=== PATIENT | male | born 1950 | race Caucasian/White ===

== ENCOUNTER 2019-05-22 12:37 | Inpatient (IN) ==
[2019-05-22] MEDS ORDERED: Ibuprofen 600 MG TABLET PO PRN (13:50)
[2019-05-22] MEDS: Aspirin Enteric Coated 325 MG Tablet PO SCH (22:05)
[2019-05-23 07:33] LABS: Basophils # 0.1 K/mcL (0.0-0.2); Basophils % 0.7 %; Eosinophils # 0.4 K/mcL (0.0-0.6); Eosinophils % 5.5 %; Hematocrit 34.4 % (37.5-50.1); Hemoglobin 11.1 g/dL (12.9-16.9); Immature Granulocytes % 0.4 % (0-4); Lymphocytes # 1.5 K/mcL (0.6-4.6); Lymphocytes % 18.9 %; Mean Corpuscular HGB Conc 32.3 g/dL (31.6-35.5); Mean Corpuscular Hemoglobin 28.9 pg (28.0-33.3); Mean Corpuscular Volume 89.6 fL (83.0-100.0); Mean Platelet Volume 9.8 fL (9.4-12.4); Monocytes % 12.6 %; Neutrophils # 4.8 K/mcL (1.6-8.9); Platelet Count 236 K/mcL (140-400); Red Blood Count 3.84 M/mcL (4.19-5.50); Segmented Neutrophils % 61.9 %; White Blood Count 7.7 K/mcL (4.3-11.1)
[2019-05-23 07:44] LABS: Activated Partial Thrombo Time 33.8 Seconds (26.0-36.0); INR 1.2; Prothrombin Time 13.5 Seconds (9.4-12.1)
[2019-05-23 07:52] LABS: BUN/Creatinine Ratio 32 (6-26); Blood Urea Nitrogen 27 mg/dL (8-23); Calcium 7.9 mg/dL (8.6-10.3); Carbon Dioxide 25 mEq/L (23-29); Chloride 108 mEq/L (98-107); Glucose 99 mg/dL (70-105); Osmolality,Calculated 295 (280-300); Sodium 140 mEq/L (136-145); eGFR For African Americans > 60 (> 60); eGFR For Non-African Americans > 60 (> 60)
[2019-05-23] MEDS: Aspirin Enteric Coated 325 MG Tablet PO SCH ×2 (09:10→21:14)
[2019-05-23] MEDS: Lisinopril 20 MG TABLET PO SCH (09:10)
[2019-05-23] MEDS: *HR* OxyCODONE Immed Rel 5 MG TABLET PO PRN (09:15)
--- NOTE | 2019-05-23 12:22 | Internal Med History&Physical ---
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 Aspirin was ordered at [facility] discharge for DVT prophylaxis. CBC will be monitored. (2) Anemia Current visit: Yes Status: Acute Postoperative. CBC will be monitored. Anemia testing will be checked in a.m. Qualifiers: Anemia type: unspecified type Qualified Code(s): D64.9 - Anemia, unspecified (3) Hypothyroidism Current visit: Yes Status: Acute Check TSH in a.m. 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 Qualifiers: Hypertension type: unspecified Qualified Code(s): I10 - Essential (primary) hypertension Internal Medicine - H&P: HPI Chief complaint: Bilateral revision knee replacements Admitted From: Hospital to Hospital Transfer Plans for Post Hospital Care: Home History of present illness: Mr. Toth is a 68 year old male who underwent bilateral revision robotic- assisted total knee replacements 05/19/2019. He had previous right TKR 2014 and previous left TKR 2006. His postop course was unremarkable and he was admitted to [facility] swing bed for rehabilitation therapy prior to returning to independent living. [facility] skeletal history is significant otherwise for right reverse total shoulder replacement 2010. 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 He denies gout or other bone joint or muscle disorders. Past Med Surg Social Fam HX - Past Medical History Medical history: arthritis, CVA Additional medical history: sleep apnea, stroke, lymes disease, CVA 2009 Psychiatric history: no psych history - Past Surgical History Surgical History: other Additional surgical history: spine surgery 1991, colonscopy 2018 with polyp removal, Bilateral knees 05/2019 - Social History Smoking Status: Never smoker Smokeless Tobacco Status: No Alcohol use: occasionally Drug use: none Internal Medicine - H&P: Meds Acetaminophen [Pain Relief] 500 mg PO Q6H 7 Days #28 tablet 05/19/19 [Rx] Aspirin Enteric Coated [Aspirin EC] 325 mg PO BID 10 Days #20 tablet 05/19/19 [Rx] Docusate [Colace] 100 mg PO BID 5 Days #10 capsule 05/19/19 [Rx] Ibuprofen [Motrin] 600 mg PO Q6HR PRN 7 Days #28 tab 05/19/19 [Rx] Levothyroxine Sodium [Euthyrox] 200 mcg PO DAILY 05/19/19 [History] Lisinopril [Zestril] 20 mg PO DAILY 05/19/19 [History] Omeprazole [PriLOSEC] 40 mg PO DAILY 05/19/19 [History] OxyCODONE Immed Rel [Roxicodone 5 MG] 5 mg PO Q6HR PRN 5 Days #20 tablet 05/19/19 [Rx] Tamsulosin [Flomax] 0.4 mg PO DAILY 05/19/19 [History] Allergy/AdvReac Type Severity Reaction Status Date / Time No Known Allergies Allergy Verified 05/19/19 06:59 All Systems PM: A 10-system review of systems was performed and is negative for pertinent findi ngs except as documented above in the HPI. Review of systems: Gen.: He states his weight has been stable for several months Cardiovascular: He has history of hypertension but denies [place] heart failure angina DVT or pulmonary embolus Respiratory: He is a lifelong nonsmoker. He denies chronic lung disease. GI: He has GERD. He denies disorders of his liver gallbladder or exocrine pancreas. He reports colonoscopy earlier this year with 2 polyps removed. : He has BPH. He denies other kidney bladder prostate disorders. Neurologic: He claims a stroke 2010 left him with slight inferior visual field defects bilaterally. He denies other large distribution strokes or seizures. 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 He is on replacement levothyroxine. He denies diabetes or hyperlipidemia Hematology/oncology: He was unaware he had anemia postoperatively. He denies internal malignancies or other blood disorders. Psychiatric: He denies anxiety depression or other mental health issues. [place] skeletal: He denies arthritis gout or other bone joint or muscle disorders. - Constitutional Vitals: Temp Pulse Resp BP Pulse Ox 98.5 F 93 18 125/73 90 05/23/19 06:26 05/23/19 06:26 05/23/19 06:26 05/23/19 06:26 05/23/19 06:26 Exam: Gen.: He is a well-developed well-nourished male sitting in a chair at bedside who appears in no acute distress HEENT: Head is atraumatic and normocephalic. Eyes: EOMI. There is no scleral icterus. Mouth: Mucosa is moist. Neck: Supple and nontender. There is no thyromegaly or adenopathy noted. Heart: Regular without murmurs or gallops. There is an occasional ectopic beat heard which is asymptomatic. Lungs: No wheezes or crackles are heard. Abdomen: Soft and nontender. No masses or guarding are noted. Exam is limited because he is in the seated position. Extremities: There is no cyanosis edema or clubbing noted. Dorsalis pedis and posterior tibial pulses are trace palpable bilaterally. He has surgical dressings in place over knee incisions bilaterally which I did not remove. Neurologic: Mental status: He is talkative and a good historian. Cranial nerves: Smile is symmetric. Forehead wrinkles bilaterally. Tongue protrudes midline. EOMI. Motor: There is no pronator drift. Cerebellar: Finger to nose is intact bilaterally. Skin: Warm and dry Internal Med - H&P Results - Labs CBC & Chem 7: 05/23/19 07:15 05/23/19 07:15 Labs: Short CBC 05/23/19 Range/Units 07:15 WBC 7.7 (4.3-11.1) K/mcL Hgb 11.1 L (12.9-16.9) g/dL Hct 34.4 L (37.5-50.1) % Plt Count 236 (140-400) K/mcL Neutrophils # 4.8 (1.6-8.9) K/mcL BMP 05/23/19 07:15 Sodium 140 Potassium 4.0 Chloride 108 H Carbon Dioxide 25 BUN 27 H Creatinine 0.84 Glucose 99 Calcium 7.9 L
[2019-05-23] MEDS ORDERED: Aspirin Enteric Coated 325 MG Tablet PO SCH (13:49)
[2019-05-24 06:15] LABS: Alanine Aminotransferase 39 Units/L (7-52); Albumin 2.9 g/dL (3.5-5.7); Alkaline Phosphatase 69 Units/L (34-104); Aspartate Amino Transferase 53 Units/L (13-39); BUN/Creatinine Ratio 27 (6-26); Bilirubin,Total 0.7 mg/dL (0.3-1.0); Blood Urea Nitrogen 22 mg/dL (8-23); Calcium 8.2 mg/dL (8.6-10.3); Carbon Dioxide 25 mEq/L (23-29); Chloride 109 mEq/L (98-107); Globulin 2.9 g/dL (2.4-3.5); Glucose 97 mg/dL (70-105); Osmolality,Calculated 299 (280-300); Potassium 4.6 mEq/L (3.5-5.1); Sodium 143 mEq/L (136-145); Total Protein 5.8 g/dL (6.4-8.9); eGFR For African Americans > 60 (> 60); eGFR For Non-African Americans > 60 (> 60)
[2019-05-24 06:30] LABS: Thyroid Stimulating Hormone 10.094 mcIU/mL (0.340-5.600)
[2019-05-24 07:12] LABS: Basophils # 0.1 K/mcL (0.0-0.2); Basophils % 0.8 %; Eosinophils # 0.5 K/mcL (0.0-0.6); Eosinophils % 7.2 %; Hemoglobin 11.1 g/dL (12.9-16.9); Immature Granulocytes % 0.5 % (0-4); Lymphocytes # 1.3 K/mcL (0.6-4.6); Lymphocytes % 19.7 %; Mean Corpuscular HGB Conc 32.6 g/dL (31.6-35.5); Mean Corpuscular Hemoglobin 29.3 pg (28.0-33.3); Mean Corpuscular Volume 89.7 fL (83.0-100.0); Mean Platelet Volume 9.7 fL (9.4-12.4); Monocytes # 0.9 K/mcL (0.0-1.3); Monocytes % 13.5 %; Neutrophils # 3.9 K/mcL (1.6-8.9); Platelet Count 242 K/mcL (140-400); Red Blood Count 3.79 M/mcL (4.19-5.50); Red Cell Distribution Width 14.9 % (11.5-14.5); Segmented Neutrophils % 58.3 %; White Blood Count 6.7 K/mcL (4.3-11.1)
[2019-05-24] MEDS: Lisinopril 20 MG TABLET PO SCH (09:05)
[2019-05-24] MEDS: Aspirin Enteric Coated 325 MG Tablet PO SCH (09:05)
[2019-05-24] MEDS: *HR* OxyCODONE Immed Rel 5 MG TABLET PO PRN (09:21)
[2019-05-24 09:36] LABS: % Iron Saturation 14 % (20-55); Iron 34 mcg/dL (65-175); Transferrin 172 mg/dL (203-362)
[2019-05-24 09:53] LABS: Ferritin 155 ng/mL (20-250)
[2019-05-24 09:58] LABS: Folate 13.3 ng/mL (3.0-16.0)
--- NOTE | 2019-05-24 15:35 | Internal Med Progress Note ---
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 Continue PT/OT intervention. Continue aspirin and monitor CBC and wound oozing. (2) Anemia Current Visit: Yes Status: Acute Assessment and plan: May 24. Hemoglobin stable at 11.1. Anemia testing showed iron 34, transferrin saturation 14%, transferrin 172, ferritin 155, B12 689, and folate 13.3. He will start ferrous sulfate with ascorbic acid in a.m. Qualifiers: Qualified Code(s): D64.9 - Anemia, unspecified (3) Hypothyroidism Current Visit: Yes Status: Chronic Assessment and plan: May 24. TSH was slightly elevated at 10.094. Increase Synthroid to 225 g daily. Qualifiers: Hypothyroidism type: unspecified Qualified Code(s): E03.9 - Hypothyroidism, unspecified (4) HTN (hypertension) Current Visit: No Status: Chronic Assessment and plan: May 24. Continue lisinopril. Qualifiers: Hypertension type: unspecified Qualified Code(s): I10 - Essential (primary) hypertension (5) Constipation Current Visit: Yes Status: Acute Assessment and plan: May 24. Start MOM every other day. Qualifiers: Constipation type: unspecified constipation type Qualified Code(s): K59.00 - Constipation, unspecified - Subjective Interval history: May 24. He reports right knee incision has showed bright red blood on the dressing after therapy session. He denies significant pain otherwise. He states he has not had a BM in 4 days. - Constitutional Vitals: Temp Pulse Resp BP Pulse Ox 98.8 F 90 24 177/93 90 05/24/19 06:31 05/24/19 06:31 05/24/19 06:31 05/24/19 06:31 05/24/19 06:31 Exam: He is resting comfortably in bed and appears in no acute distress. There is no active oozing seen through the transparent dressing covering the right leg. There is some bright red bloodstain on the honeycomb foam. He has 0 to trace edema of the lower legs bilaterally. I reviewed his medications and lab results. Internal Medicine: Result - Labs CBC & Chem 7: 05/24/19 06:50 05/24/19 04:54 Labs: Short CBC 08/19/19 Range/Units 06:50 WBC 6.7 (4.3-11.1) K/mcL Hgb 11.1 L (12.9-16.9) g/dL Hct 34.0 L (37.5-50.1) % Plt Count 242 (140-400) K/mcL Neutrophils # 3.9 (1.6-8.9) K/mcL BMP 05/24/19 04:54 Sodium 143 Potassium 4.6 Chloride 109 H Carbon Dioxide 25 BUN 22 Creatinine 0.82 Glucose 97 Calcium 8.2 L Liver Function 05/24/19 Range/Units 04:54 Total Bilirubin 0.7 (0.3-1.0) mg/dL AST 53 H (13-39) Units/L ALT 39 (7-52) Units/L Alkaline Phosphatase 69 (34-104) Units/L Albumin 2.9 L (3.5-5.7) g/dL - ABG Interpretation ABG results: PT/INR, D-dimer PT 13.5 Seconds (9.4-12.1) H 05/23/19 07:15 Consult Discharge Plan - Plan Referrals: Misael Weathers [Primary Care Provider] - 1 week
[2019-05-24] MEDS: MOM Conc 10 ML UD.LIQ PO SCH (21:48)
[2019-05-25] MEDS: Ascorbic Acid 500 MG TABLET PO SCH (06:34)
[2019-05-25] MEDS: Lisinopril 20 MG TABLET PO SCH (09:52)
[2019-05-25] MEDS: *HR* OxyCODONE Immed Rel 5 MG TABLET PO PRN (17:11)
--- NOTE | 2019-05-25 17:22 | Internal Med Progress Note ---
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 Continue PT/OT intervention. Continue aspirin and monitor CBC and wound oozing. (2) Anemia Current Visit: Yes Status: Acute Assessment and plan: May 24. Hemoglobin stable at 11.1. Anemia testing showed iron 34, transferrin saturation 14%, transferrin 172, ferritin 155, B12 689, and folate 13.3. He will start ferrous sulfate with ascorbic acid in a.m. May 25. Continue ferrous sulfate with ascorbic acid. Monitor CBC pe riodically. Qualifiers: Qualified Code(s): D64.9 - Anemia, unspecified (3) Hypothyroidism Current Visit: Yes Status: Chronic Assessment and plan: May 24. TSH was slightly elevated at 10.094. Increase Synthroid to 225 g daily. Qualifiers: Hypothyroidism type: unspecified Qualified Code(s): E03.9 - Hypothyroidism, unspecified (4) HTN (hypertension) Current Visit: No Status: Chronic Assessment and plan: May 24. Continue lisinopril. Qualifiers: Hypertension type: unspecified Qualified Code(s): I10 - Essential (primary) hypertension (5) Constipation Current Visit: Yes Status: Acute Assessment and plan: May 24. Start MOM every other day. Qualifiers: Constipation type: unspecified constipation type Qualified Code(s): K59.00 - Constipation, unspecified - Subjective Interval history: May 24. He reports right knee incision has showed bright red blood on the dressing after therapy session. He denies significant pain otherwise. He states he has not had a BM in 4 days. May 25. He has no new complaints. He states he walked over 600 feet today in therapy. He has noticed no additional oozing from his surgical wounds. - Constitutional Vitals: Temp Pulse Resp BP Pulse Ox 98.7 F 77 22 156/89 90 05/25/19 06:31 05/25/19 06:31 05/25/19 06:31 05/25/19 06:31 05/25/19 06:31 Exam: There appears to be no bright red blood from either knee incision. He has trace pitting edema of his lower legs bilaterally. I reviewed his medications and lab results. Internal Medicine: Result - Labs CBC & Chem 7: 05/24/19 06:50 05/24/19 04:54 - ABG Interpretation ABG results: PT/INR, D-dimer PT 13.5 Seconds (9.4-12.1) H 05/23/19 07:15 Consult Discharge Plan - Plan Referrals: Misael Weathers [Primary Care Provider] - 1 week
[2019-05-25] MEDS: Aspirin Enteric Coated 325 MG Tablet PO SCH (21:37)
[2019-05-26] MEDS: Ascorbic Acid 500 MG TABLET PO SCH (06:11)
[2019-05-26] MEDS: Lisinopril 20 MG TABLET PO SCH (10:22)
[2019-05-26] MEDS: Aspirin Enteric Coated 325 MG Tablet PO SCH ×2 (10:22→22:05)
[2019-05-26] MEDS: *HR* OxyCODONE Immed Rel 5 MG TABLET PO PRN (10:24)
[2019-05-26] MEDS: MOM Conc 10 ML UD.LIQ PO SCH ×2 (22:05→22:06)
[2019-05-27] MEDS: *HR* OxyCODONE Immed Rel 5 MG TABLET PO PRN ×2 (05:45→20:02)
[2019-05-27] MEDS: Ascorbic Acid 500 MG TABLET PO SCH (05:45)
[2019-05-27] MEDS: Aspirin Enteric Coated 325 MG Tablet PO SCH ×2 (07:43→20:02)
[2019-05-27] MEDS: Lisinopril 20 MG TABLET PO SCH (07:44)
--- NOTE | 2019-05-27 16:20 | Internal Med Progress Note ---
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 Continue PT/OT intervention. Continue aspirin and monitor CBC and wound oozing. (2) Anemia Current Visit: Yes Status: Acute Assessment and plan: May 24. Hemoglobin stable at 11.1. Anemia testing showed iron 34, transferrin saturation 14%, transferrin 172, ferritin 155, B12 689, and folate 13.3. He will start ferrous sulfate with ascorbic acid in a.m. May 25. Continue ferrous sulfate with ascorbic acid. Monitor CBC pe riodically. May 27. Recheck labs in a.m. Qualifiers: Qualified Code(s): D64.9 - Anemia, unspecified (3) Hypothyroidism Current Visit: Yes Status: Chronic Assessment and plan: May 24. TSH was slightly elevated at 10.094. Increase Synthroid to 225 g daily. Qualifiers: Hypothyroidism type: unspecified Qualified Code(s): E03.9 - Hypothyroidism, unspecified (4) HTN (hypertension) Current Visit: No Status: Chronic Assessment and plan: May 24. Continue lisinopril. Qualifiers: Hypertension type: unspecified Qualified Code(s): I10 - Essential (primary) hypertension (5) Constipation Current Visit: Yes Status: Acute Assessment and plan: May 24. Start MOM every other day. Qualifiers: Constipation type: unspecified constipation type Qualified Code(s): K59.00 - Constipation, unspecified - Subjective Interval history: May 24. He reports right knee incision has showed bright red blood on the dressing after therapy session. He denies significant pain otherwise. He states he has not had a BM in 4 days. May 25. He has no new complaints. He states he walked over 600 feet today in therapy. He has noticed no additional oozing from his surgical wounds. May 27. He has no new complaints. He had follow-up visit at orthopedist office today and rebel were removed from knee surgical incisions. - Constitutional Vitals: Temp Pulse Resp BP Pulse Ox 98.6 F 87 24 113/78 92 05/27/19 06:56 05/27/19 06:56 05/27/19 06:56 05/27/19 06:56 08/21/19 20:17 Exam: He is resting comfortably in bed and appears in no acute distress. There is trace pitting edema of his lower legs bilaterally. There is slight amount of bright red bloody/serous drainage on the honeycomb dressing of the right leg. No drainage is visualized on the left leg dressing. I reviewed his medications and lab results. Internal Medicine: Result - Labs CBC & Chem 7: 05/24/19 06:50 05/24/19 04:54 - ABG Interpretation ABG results: PT/INR, D-dimer PT 13.5 Seconds (9.4-12.1) H 05/23/19 07:15 Consult Discharge Plan - Plan Referrals: Misael Weathers [Primary Care Provider] - 1 week
[2019-05-28] MEDS: *HR* OxyCODONE Immed Rel 5 MG TABLET PO PRN (03:49)
[2019-05-28] MEDS: Ascorbic Acid 500 MG TABLET PO SCH (06:19)
[2019-05-28] MEDS: Aspirin Enteric Coated 325 MG Tablet PO SCH (09:04)
[2019-05-28] MEDS: Lisinopril 20 MG TABLET PO SCH (09:04)
[2019-05-28] MEDS: MOM Conc 10 ML UD.LIQ PO SCH (20:15)
[2019-05-29] MEDS: Ascorbic Acid 500 MG TABLET PO SCH (05:28)
[2019-05-29] MEDS: *HR* Enoxaparin 40 MG/0.4 ML SYRINGE SQ SCH (05:28)
[2019-05-29 07:40] LABS: Basophils # 0.1 K/mcL (0.0-0.2); Eosinophils # 0.8 K/mcL (0.0-0.6); Eosinophils % 6.4 %; Hematocrit 36.6 % (37.5-50.1); Hemoglobin 11.8 g/dL (12.9-16.9); Immature Granulocytes % 0.9 % (0-4); Lymphocytes # 2.1 K/mcL (0.6-4.6); Lymphocytes % 17.1 %; Mean Corpuscular HGB Conc 32.2 g/dL (31.6-35.5); Mean Corpuscular Hemoglobin 28.9 pg (28.0-33.3); Mean Corpuscular Volume 89.5 fL (83.0-100.0); Monocytes # 1.2 K/mcL (0.0-1.3); Platelet Count 395 K/mcL (140-400); Red Blood Count 4.09 M/mcL (4.19-5.50); Red Cell Distribution Width 15.1 % (11.5-14.5); Segmented Neutrophils % 64.6 %; White Blood Count 12.4 K/mcL (4.3-11.1)
[2019-05-29] MEDS: Lisinopril 20 MG TABLET PO SCH (08:59)
[2019-05-29] MEDS: *HR* OxyCODONE Immed Rel 5 MG TABLET PO PRN (12:05)
[2019-05-30] MEDS: Ascorbic Acid 500 MG TABLET PO SCH (05:25)
[2019-05-30] MEDS: *HR* Enoxaparin 40 MG/0.4 ML SYRINGE SQ SCH (05:25)
[2019-05-30] MEDS: Lisinopril 20 MG TABLET PO SCH (09:35)
--- NOTE | 2019-05-30 16:05 | Internal Med Progress Note ---
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 Continue PT/OT intervention. Continue aspirin and monitor CBC and wound oozing. May 30. Continue PT/OT and Lovenox. (2) Anemia Current Visit: Yes Status: Acute Assessment and plan: May 24. Hemoglobin stable at 11.1. Anemia testing showed iron 34, transferrin saturation 14%, transferrin 172, ferritin 155, B12 689, and folate 13.3. He will start ferrous sulfate with ascorbic acid in a.m. May 25. Continue ferrous sulfate with ascorbic acid. Monitor CBC periodically. May 27. Recheck labs in a.m. May 30. Hemoglobin improved to 11.8 yesterday. Continue to monitor periodically. Qualifiers: Qualified Code(s): D64.9 - Anemia, unspecified (3) Hypothyroidism Current Visit: Yes Status: Chronic Assessment and plan: May 24. TSH was slightly elevated at 10.094. Increase Synthroid to 225 g daily. Qualifiers: Hypothyroidism type: unspecified Qualified Code(s): E03.9 - Hypothyroidism, unspecified (4) HTN (hypertension) Current Visit: No Status: Chronic Assessment and plan: May 24. Continue lisinopril. Qualifiers: Hypertension type: unspecified Qualified Code(s): I10 - Essential (primary) hypertension (5) Constipation Current Visit: Yes Status: Acute Assessment and plan: May 24. Start MOM every other day. Qualifiers: Constipation type: unspecified constipation type Qualified Code(s): K59.00 - Constipation, unspecified - Subjective Interval history: May 24. He reports right knee incision has showed bright red blood on the dressing after therapy session. He denies significant pain otherwise. He states he has not had a BM in 4 days. May 25. He has no new complaints. He states he walked over 600 feet today in therapy. He has noticed no additional oozing from his surgical wounds. May 27. He has no new complaints. He had follow-up visit at orthopedist office today and rebel were removed from knee surgical incisions. May 30. He has no new complaints. He has not had further wound drainage since aspirin was discontinued. - Constitutional Vitals: Temp Pulse Resp BP Pulse Ox 98.6 F 88 18 119/81 90 05/30/19 07:20 05/30/19 07:20 05/30/19 07:20 05/30/19 07:20 05/30/19 07:20 Exam: He is resting comfortably at bedside. There is no drainage on honeycomb dressings over his knee incisions. His affect is cheerful. I reviewed his medications and lab results. Internal Medicine: Result - Labs CBC & Chem 7: 05/29/19 07:22 05/24/19 04:54 - ABG Interpretation ABG results: PT/INR, D-dimer PT 13.5 Seconds (9.4-12.1) H 05/23/19 07:15 Consult Discharge Plan - Plan Referrals: Misael Weathers [Primary Care Provider] - 1 week
[2019-05-30] MEDS: MOM Conc 10 ML UD.LIQ PO SCH (22:22)
[2019-05-31] MEDS: *HR* OxyCODONE Immed Rel 5 MG TABLET PO PRN ×2 (04:44→20:45)
[2019-05-31] MEDS: *HR* Enoxaparin 40 MG/0.4 ML SYRINGE SQ SCH (04:44)
[2019-05-31] MEDS: Ascorbic Acid 500 MG TABLET PO SCH (04:45)
[2019-05-31] MEDS: Lisinopril 20 MG TABLET PO SCH (09:27)
[2019-06-01] MEDS: *HR* Enoxaparin 40 MG/0.4 ML SYRINGE SQ SCH (06:16)
[2019-06-01] MEDS: Ascorbic Acid 500 MG TABLET PO SCH (06:16)
[2019-06-01] MEDS: *HR* OxyCODONE Immed Rel 5 MG TABLET PO PRN (09:08)
[2019-06-01] MEDS: Lisinopril 20 MG TABLET PO SCH (09:09)
[2019-06-01] MEDS: MOM Conc 10 ML UD.LIQ PO SCH (20:25)
[2019-06-01] MEDS ORDERED: Mag Hydrox/Al Hydrox/Simeth 30 ML UDC PO PRN (21:13)
[2019-06-01] MEDS ORDERED: Ondansetron ODT 4 MG TAB.RAPDIS SL PRN (21:13)
[2019-06-02] MEDS: *HR* Enoxaparin 40 MG/0.4 ML SYRINGE SQ SCH (06:34)
[2019-06-02] MEDS: *HR* OxyCODONE Immed Rel 5 MG TABLET PO PRN (06:38)
[2019-06-02] MEDS: Ascorbic Acid 500 MG TABLET PO SCH (06:38)
[2019-06-02] MEDS: Lisinopril 20 MG TABLET PO SCH (08:10)
--- NOTE | 2019-06-02 12:11 | Internal Med Progress Note ---
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 Continue PT/OT intervention. Continue aspirin and monitor CBC and wound oozing. May 30. Continue PT/OT and Lovenox. June 02. Follow-up with orthopedist 06/04/2019. Anticipate discharge home after return from appointment. (2) Anemia Current Visit: Yes Status: Acute Assessment and plan: May 24. Hemoglobin stable at 11.1. Anemia testing showed iron 34, transferrin saturation 14%, transferrin 172, ferritin 155, B12 689, and folate 13.3. He will start ferrous sulfate with ascorbic acid in a.m. May 25. Continue ferrous sulfate with ascorbic acid. Monitor CBC periodically. May 27. Recheck labs in a.m. May 30. Hemoglobin improved to 11.8 yesterday. Continue to monitor periodically. Qualifiers: Qualified Code(s): D64.9 - Anemia, unspecified (3) Hypothyroidism Current Visit: Yes Status: Chronic Assessment and plan: May 24. TSH was slightly elevated at 10.094. Increase Synthroid to 225 g daily. Qualifiers: Hypothyroidism type: unspecified Qualified Code(s): E03.9 - Hypothyroidism, unspecified (4) HTN (hypertension) Current Visit: No Status: Chronic Assessment and plan: May 24. Continue lisinopril. Qualifiers: Hypertension type: unspecified Qualified Code(s): I10 - Essential (primary) hypertension (5) Constipation Current Visit: Yes Status: Acute Assessment and plan: May 24. Start MOM every other day. Qualifiers: Constipation type: unspecified constipation type Qualified Code(s): K59.00 - Constipation, unspecified - Subjective Interval history: May 24. He reports right knee incision has showed bright red blood on the dressing after therapy session. He denies significant pain otherwise. He states he has not had a BM in 4 days. May 25. He has no new complaints. He states he walked over 600 feet today in therapy. He has noticed no additional oozing from his surgical wounds. May 27. He has no new complaints. He had follow-up visit at orthopedist office today and rebel were removed from knee surgical incisions. May 30. He has no new complaints. He has not had further wound drainage since aspirin was discontinued. June 02. He has no new complaints. There has been no further wound drainage. He was constipated earlier today but had significant BM and feels resolved now. - Constitutional Vitals: Temp Pulse Resp BP Pulse Ox 98.4 F 84 18 119/74 90 06/02/19 07:11 06/02/19 07:11 06/02/19 07:11 06/02/19 07:11 06/02/19 07:11 Exam: He is resting comfortably in bed and appears in no acute distress. Knee dressing showed no drainage on honeycomb. Extremities show no pitting edema. I reviewed his medications and lab results. Internal Medicine: Result - Labs CBC & Chem 7: 05/29/19 07:22 05/24/19 04:54 - ABG Interpretation ABG results: PT/INR, D-dimer PT 13.5 Seconds (9.4-12.1) H 05/23/19 07:15 Consult Discharge Plan - Plan Referrals: Misael Weathers [Primary Care Provider] - 1 week
[2019-06-02] MEDS ORDERED: MOM Conc 10 ML UD.LIQ PO SCH (21:00)
[2019-06-03] MEDS: Ascorbic Acid 500 MG TABLET PO SCH (05:55)
[2019-06-03] MEDS: *HR* Enoxaparin 40 MG/0.4 ML SYRINGE SQ SCH (05:56)
[2019-06-03] MEDS: Lisinopril 20 MG TABLET PO SCH (09:12)
[2019-06-04] MEDS: *HR* Enoxaparin 40 MG/0.4 ML SYRINGE SQ SCH (06:56)
[2019-06-04] MEDS: Ascorbic Acid 500 MG TABLET PO SCH (06:56)
[2019-06-04] MEDS: Lisinopril 20 MG TABLET PO SCH (08:13)
[2019-06-04 08:47] VITALS: BP 126/75
--- NOTE | 2019-06-04 12:36 | Discharge Summary ---
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 Priority: Primary Status: Acute (2) Anemia Priority: Secondary Status: Chronic Qualifiers: Anemia type: iron deficiency Iron deficiency anemia type: unspecified iron deficiency Qualified Code(s): D50.9 - Iron deficiency anemia, unspecified (3) Hypothyroidism Priority: Secondary Status: Chronic Qualifiers: Hypothyroidism type: unspecified Qualified Code(s): E03.9 - Hypothyroidism, unspecified (4) HTN (hypertension) Priority: Secondary Status: Chronic Qualifiers: Hypertension type: unspecified Qualified Code(s): I10 - Essential (primary) hypertension (5) Constipation Priority: Secondary Status: Acute Qualifiers: Constipation type: unspecified constipation type Qualified Code(s): K59.00 - Constipation, unspecified Hospital course: Mr. Toth is a 68 year old male who underwent bilateral revision robotic- assisted total knee replacements 05/19/2019. He had previous right TKR 2014 and previous left TKR 2006. His postop course was unremarkable and he was admitted to [facility] swing bed for rehabilitation therapy prior to returning to independent living. Initial orders were written by the discharging physicians at [facility]. I saw him on May 23 and performed a swing bed history and physical. He was initially given aspirin for DVT prophylaxis. He had oozing observed from his knee incisions and was changed to Lovenox and no further bleeding was noted. He made satisfactory progress in PT and OT. He had follow-up appointment with orthopedist June 04 with good report and was felt stable for discharge home. Anemia testing showed iron 34, transferrin saturation 14%, transferrin 172, ferritin 155, B12 689, and folate 13.3. He started ferrous sulfate with ascorbic acid and these will be continued at discharge. TSH returned slightly elevated at 10.094. Synthroid dose was increased to 225 g daily. His PCP can monitor TSH. He will follow with his PCP Misael Weathers CNP within 1 week. Home health services will be ordered. A bedside commode was ordered for DME. - Time Spent with Patient Total time spent providing and/or coordinating discharge services: - Discharge Medications Prescriptions: New Ferrous Sulfate 325 mg PO 0630 #30 tablet MOM Conc [MILK OF MAGNESIA conc] 10 ml PO Q48H ud.liq Levothyroxine [Synthroid] 25 mcg PO 0630 #30 tablet Ascorbic Acid [Vitamin C] 500 mg PO 0630 #30 tablet Continued Levothyroxine Sodium [Euthyrox] 200 mcg PO DAILY Omeprazole [PriLOSEC] 40 mg PO DAILY Lisinopril [Zestril] 20 mg PO DAILY Tamsulosin [Flomax] 0.4 mg PO DAILY Docusate [Colace] 100 mg PO BID 5 Days #10 capsule Acetaminophen [Pain Relief] 500 mg PO Q6H 7 Days #28 tablet OxyCODONE Immed Rel [Roxicodone 5 MG] 5 mg PO Q6HR PRN 5 Days #20 tablet PRN Reason: Severe Pain Discontinued Ibuprofen [Motrin] 600 mg PO Q6HR PRN 7 Days #28 tab PRN Reason: Pain Aspirin Enteric Coated [Aspirin EC] 325 mg PO BID 10 Days #20 tablet.dr Home Medications: Acetaminophen [Pain Relief] 500 mg PO Q6H 7 Days #28 tablet 05/19/19 [Rx] Docusate [Colace] 100 mg PO BID 5 Days #10 capsule 05/19/19 [Rx] Levothyroxine Sodium [Euthyrox] 200 mcg PO DAILY 05/19/19 [History] Lisinopril [Zestril] 20 mg PO DAILY 05/19/19 [History] Omeprazole [PriLOSEC] 40 mg PO DAILY 05/19/19 [History] OxyCODONE Immed Rel [Roxicodone 5 MG] 5 mg PO Q6HR PRN 5 Days #20 tablet 05/19/19 [Rx] Tamsulosin [Flomax] 0.4 mg PO DAILY 05/19/19 [History] Ascorbic Acid [Vitamin C] 500 mg PO 0630 #30 tablet 06/04/19 [Rx] Ferrous Sulfate 325 mg PO 0630 #30 tablet 06/04/19 [Rx] Levothyroxine [Synthroid] 25 mcg PO 0630 #30 tablet 06/04/19 [Rx] MOM Conc [MILK OF MAGNESIA conc] 10 ml PO Q48H ud.liq 06/04/19 [Rx] Allergies/Adverse Reactions: Allergy/AdvReac Type Severity Reaction Status Date / Time No Known Allergies Allergy Verified 05/19/19 06:59 Date of admission: 05/22/19 14:07 Primary care physician: Misael Jasiel Consults: 05/22/19 13:34 Consult to Occupational Therapy [CONS] Routine Comment: eval, develop, implent POC Reason for Consult: eval, develop, implent POC Does patient have active BEDREST order?: No Is patient medically & hemodynamically stable?: Yes Patient assessed for mobility or mobilized this visit?: Yes Consult to Physical Therapy [CONS] Routine Comment: eval, develop, implent POC Reason for Consult: eval, develop, implent POC Does patient have active BEDREST order?: No Is patient medically & hemodynamically stable?: Yes Patient assessed for mobility or mobilized this visit?: Yes Consult to Fats And Oils Loader [CONS] Routine Reason for SW Consult: discharge planning - Constitutional Vitals: Temp Pulse Resp BP Pulse Ox 98.5 F 91 18 126/75 92 06/04/19 07:00 06/04/19 07:00 06/04/19 07:00 06/04/19 07:00 06/04/19 07:00 - Patient Status Disposition: Home Health Service - Discharge Instructions Follow Up With: Misael Weathers [Primary Care Provider] - 1 week - Diet and Activity Activity: as per physical therapy Diet: advance to your usual diet
--- NOTE | 2019-06-04 12:41 | Physician Discharge Referral ---
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 For more information, call the [place] Tobacco Quit Line at 6-012-VGMA-NOW. - Diet/Nutrition Diet/Nutrition Orders: Regular - Activity Activity Orders: Walker - Services Needed Following services are medically necessary services: Nursing, Home Health Aide, Physical Therapy, Occupational Therapy - Transfer Medications Prescriptions: Ferrous Sulfate 325 mg PO 0630 #30 tablet Levothyroxine [Synthroid] 25 mcg PO 0630 #30 tablet Ascorbic Acid [Vitamin C] 500 mg PO 0630 #30 tablet Home Medications: Acetaminophen [Pain Relief] 500 mg PO Q6H 7 Days #28 tablet 05/19/19 [Rx] Docusate [Colace] 100 mg PO BID 5 Days #10 capsule 05/19/19 [Rx] Levothyroxine Sodium [Euthyrox] 200 mcg PO DAILY 05/19/19 [History] Lisinopril [Zestril] 20 mg PO DAILY 05/19/19 [History] Omeprazole [PriLOSEC] 40 mg PO DAILY 05/19/19 [History] OxyCODONE Immed Rel [Roxicodone 5 MG] 5 mg PO Q6HR PRN 5 Days #20 tablet 05/19/19 [Rx] Tamsulosin [Flomax] 0.4 mg PO DAILY 05/19/19 [History] Ascorbic Acid [Vitamin C] 500 mg PO 0630 #30 tablet 06/04/19 [Rx] Ferrous Sulfate 325 mg PO 0630 #30 tablet 06/04/19 [Rx] Levothyroxine [Synthroid] 25 mcg PO 0630 #30 tablet 06/04/19 [Rx] MOM Conc [MILK OF MAGNESIA conc] 10 ml PO Q48H ud.liq 06/04/19 [Rx] Allergies/Adverse Reactions: Allergy/AdvReac Type Severity Reaction Status Date / Time No Known Allergies Allergy Verified 05/19/19 06:59 Certification: Further, I certify that my clinical findings support that this patient is homebound (i.e. absences from home require considerable and taxing effort and are for medical reasons or [employer] [facility] or infrequently or short duration when for other reasons) because: Homebound Reason: Leaving home requires considerable and taxing effort due to condition (Impaired walking ability secondary to bilateral TKR) Attestation: My signature below is to certify that this patient is under my care and that I, or nurse practitioner, or a physician's orthodontic assistant working with me, has a [id number] encounter with this patient.
== END 2019-06-04 14:08 | disposition home health service (06) | DRG 561 ==
LOC: INPPIK 14:07
PROVIDERS: ADMIT Internal Medicine; ATTEND Internal Medicine